=== PATIENT | female | born 1975 | race Caucasian/White ===

== ENCOUNTER 2017-10-24 13:03 | Emergency (ER) | payer MEDICAID ==
--- NOTE | 2017-10-24 13:59 | ED Physician Chart ---
ED Chief Complaint/HPI - Patient Information Date Seen:: 10/24/17 Time Seen:: 13:45 Chief Complaint:: wound check History of Present Illness:: Last night patient tripped over a a dog and left leg then struck welded metals sculpture that had a sharp edge lacerating her left lower leg. Laceration was sutured and [facility]. Allergies:: Allergies Allergy/AdvReac Type Severity Reaction Status Date / Time latex Allergy Verified 10/24/17 13:30 morphine Allergy Verified 10/24/17 13:30 Vitals:: Vital Signs - 8 hr 10/24/17 13:23 Temp 97.2 F HR 82 RR 16 BP 99/75 O2 Sat % 100 Historian:: Patient Review:: Nurse's Note Reviewed ED Review of Systems - Review of Systems General/Constitutional: No fever, No chills Skin: Skin lesions Head: No headache Eyes: Acuity change ENT: No earache Neck: No neck pain, No swelling Cardio Vascular: No chest pain, No palpitations Pulmonary: No SOB GI: No nausea, No vomiting, No diarrhea G/U: No dysuria Musculoskeletal: No bone or joint pain, No back pain, No muscle pain Endocrine: No polyuria, No polydipsia Hematopoietic: No bruising, No lymphadenopathy Allergic/Immuno: No urticaria, No angioedema Neurological: No syncope, No headache ED Past Medical History - Past Medical History Past Medical History: Other (scoliosis; rheumatoid arthritis; fibromyalgia; liver cyst; neck and back pain for the last 6 years.) Family History: Heart disease, Diabetes Melitus, HTN Social History: Smoker, No Alcohol, No Drug Use, Other (smokes 3 cigarettes a day) Surgical History: Hysterectomy, (3 C-sections; left foot surgery), other Psychiatricy History: None Medication: Reviewed ED Physical Exam - Physical Examination General/Constitutional: Well-developed, well-nourished, Alert, No distress Head: Atraumatic Eyes: Lids, conjuctiva normal, PERRL Other Skin comments:: 5 cm horizontal laceration distal anterior medial left lower leg; no signs of infection ENMT: External ears, nose nl, TM canals nl, Nasal exam nl, Lips, teeth, gums nl , Oropharynx nl, Tonsils nl Neck: No nuchal rigidity Respiratory: Nl effort/Exclusion, Clear to Auscultation, No Wheeze/Rhonchi/Rales Cardio Vascular: RRR, No murmur, gallop, rubs GI: No tenderness/rebounding/guarding, No organomegaly : No CVA tenderness Extremities: Normal digits & nails Neuro/Psych: No focal deficits Misc: No paraspinal tenderness ED Septic Shock - . Is Septic Shock (SBP<90, OR Lactate>4 mmol\L) present?: No - <6hrs of presentation: Vital Signs: Vital Signs - 8 hr 10/24/17 13:23 Temp 97.2 F HR 82 RR 16 BP 99/75 O2 Sat % 100 ED Reassessment (Disposition) - Reassessment Reassessment Condition:: Unchanged - Diagnosis Diagnosis:: Wound check laceration left lower leg - Aftercare/Follow up Instructions Aftercare/Follow-Up Instructions:: Refer to Discharge Instructions - Patient Disposition Discharge/Transfer:: Home Condition at Disposition:: Stable, Unchanged
== END 2017-10-24 14:18 | disposition home or self-care (01) ==
LOC: ER 13:03
DX: S81.812D Laceration without foreign body, left lower leg, subsequent encounter (principal); W01.0XXD Fall on same level from slipping, tripping and stumbling without subsequent striking against object, subsequent encounter; F17.200 Nicotine dependence, unspecified, uncomplicated; Z48.00 Encounter for change or removal of nonsurgical wound dressing
CPT/HCPCS: Z7502